=== PATIENT | male | born 1965 | race Two or more races ===

== ENCOUNTER 2017-04-20 14:51 | Emergency (ER) | payer OTHER ==
[~2017-04-20] VITALS: Ht 180.3 cm; Wt 83.5 kg
--- NOTE | 2017-04-20 15:48 | NUR ---
Patient discharged to home in stable conditon. Written and verbal after care instructions given. Patient verbalizes understanding of instructions.PT WALKS IN STEADY GAIT, PT WITH
== END 2017-04-20 15:50 | disposition home or self-care (01) ==
LOC: ER 14:52
DX: H66.92 Otitis media, unspecified, left ear (principal); J11.1 Influenza due to unidentified influenza virus with other respiratory manifestations; K21.9 Gastro-esophageal reflux disease without esophagitis; F17.200 Nicotine dependence, unspecified, uncomplicated
CPT/HCPCS: A4663

== ENCOUNTER 2017-05-28 08:10 | Emergency (ER) | payer OTHER ==
[~2017-05-28] VITALS: Ht 180.3 cm; Wt 83.9 kg
--- NOTE | 2017-05-28 08:33 | NUR ---
NAIN COPELAND at the bedside for MSE.
--- NOTE | 2017-05-28 08:43 | NUR ---
Patient discharged to home in stable conditon. Written and verbal after care instructions given. Patient verbalizes understanding of instructions.
[2017-05-28 08:47] VITALS: BP 155/91
== END 2017-05-28 08:47 | disposition home or self-care (01) ==
LOC: ER 08:10
DX: J40 Bronchitis, not specified as acute or chronic (principal); K21.9 Gastro-esophageal reflux disease without esophagitis; F17.200 Nicotine dependence, unspecified, uncomplicated
CPT/HCPCS: A4663

== ENCOUNTER 2017-10-04 08:24 | Emergency (ER) | payer OTHER ==
[~2017-10-04] VITALS: Ht 180.3 cm; Wt 86.2 kg
[2017-10-04] MEDS ORDERED: OMEPRAZOLE DR 20 MG CAPSULE PO (08:33)
--- NOTE | 2017-10-04 08:49 | NUR ---
Patient discharged to home in stable conditon. Written and verbal after care instructions given. Patient verbalizes understanding of instructions.
== END 2017-10-04 08:50 | disposition home or self-care (01) ==
LOC: ER 08:24
DX: J06.9 Acute upper respiratory infection, unspecified (principal); K21.9 Gastro-esophageal reflux disease without esophagitis; F17.210 Nicotine dependence, cigarettes, uncomplicated; Z79.899 Other long term (current) drug therapy
CPT/HCPCS: 99283; A4663

== ENCOUNTER 2018-01-12 15:29 | Emergency (ER) | payer OTHER ==
[~2018-01-12] VITALS: Ht 180.3 cm; Wt 86.2 kg
--- NOTE | 2018-01-12 16:05 | NUR ---
PATIENT WAS MSE BY DR BRYANT IN ROOM 01B.
--- NOTE | 2018-01-12 16:23 | NUR ---
Patient discharged to home in stable conditon. Written and verbal after care instructions given. Patient verbalizes understanding of instructions.
[2018-01-12 16:27] VITALS: BP 143/86
== END 2018-01-12 16:29 | disposition home or self-care (01) ==
LOC: ER 15:31
DX: J06.9 Acute upper respiratory infection, unspecified (principal); K21.9 Gastro-esophageal reflux disease without esophagitis; F17.200 Nicotine dependence, unspecified, uncomplicated
CPT/HCPCS: A4663

== ENCOUNTER → 2018-01-12 | Emergency (ER) | payer OTHER ==
[~2018-01-12] MED LIST: OMEPRAZOLE DR 20 MG CAPSULE PO
--- NOTE | 2018-01-12 14:43 | NUR ---
PT NOT IN WAITING RM - CHECKED X 2.
--- NOTE | 2018-01-12 15:06 | NUR ---
NOT IN WAITING RM.
== END | disposition left against medical advice (07) ==
LOC: ER 14:15
DX: Z53.21 Procedure and treatment not carried out due to patient leaving prior to being seen by health care provider (principal)

== ENCOUNTER 2018-04-13 05:25 | Emergency (ER) | payer OTHER ==
[~2018-04-13] VITALS: Ht 180.3 cm; Wt 88.5 kg
--- NOTE | 2018-04-13 05:30 | NUR ---
Pt. ambulated into ED w/ c/o upper epigastric/lower esophageal pain/heartburn X 3 days, pt. states "I ran out of my omeprazole", denies F/C/N/V/D/MORALES/CP/SOB, A/Ox4, accompanied by ,
[2018-04-13] MEDS ORDERED: ALPR0.5T8 PO (05:40)
[2018-04-13] MEDS ORDERED: DICYCLOMINE HCL LIQ 10 MG/5 ML UDC PO ONE (06:00)
[2018-04-13] MEDS ORDERED: MAG HYDROX/AL HYDROX/SIMETH 30 ML LIQUID UDC PO ONE ×2 (06:00→06:45)
[2018-04-13] MEDS ORDERED: LIDOCAINE VISCUS 2% 15 ML UDC MM ONE (06:00)
[2018-04-13] MEDS ORDERED: LIDOCAINE HCL 2% 20 ML VIAL ONE (06:02)
[2018-04-13] MEDS ORDERED: DICYCLOMINE HCL LIQ 10 MG/5 ML UDC ONE (06:02)
[2018-04-13] MEDS ORDERED: MAGNESIUM HYDROXIDE 30 ML LIQUID UDC ONE ×2 (06:02→06:36)
[2018-04-13] MEDS ORDERED: LIDOCAINE VISCUS 2% 15 ML UDC ONE (06:04)
--- NOTE | 2018-04-13 06:37 | NUR ---
Patient discharged to home in stable conditon. Written and verbal after care instructions given. Patient verbalizes understanding of instructions. Pt. d/c w/ prescription per MD order, d/c papers signed, ID band removed, all belongings w/ pt., left w/ female tug captain in private vehicle, left w/ steady gait in private vehicle, no acute distress,
== END 2018-04-13 06:39 | disposition home or self-care (01) ==
LOC: ER 05:28
DX: R12 Heartburn (principal); Z71.6 Tobacco abuse counseling; K21.9 Gastro-esophageal reflux disease without esophagitis; F17.290 Nicotine dependence, other tobacco product, uncomplicated; Z79.899 Other long term (current) drug therapy
CPT/HCPCS: A4663; J3490

== ENCOUNTER 2018-11-29 07:44 | Emergency (ER) | payer OTHER ==
[~2018-11-29] VITALS: Ht 180.3 cm; Wt 90.7 kg
[~2018-11-29 07:44] MED LIST changes: +ALPR0.5T8 PO
--- NOTE | 2018-11-29 08:51 | NUR ---
PATIENT WAS SEEN BY . DC, RX AND FOLLOW UP INSTRUCTIONS GIVEN AND EXPLAINED TO PATIENT WHO STATES HE UNDERSTANDS ALL INSTRUCTIONS.
== END 2018-11-29 08:55 | disposition home or self-care (01) ==
LOC: ER 07:44
DX: R21 Rash and other nonspecific skin eruption (principal); L29.9 Pruritus, unspecified; K21.9 Gastro-esophageal reflux disease without esophagitis; F41.9 Anxiety disorder, unspecified; F17.200 Nicotine dependence, unspecified, uncomplicated; Z79.899 Other long term (current) drug therapy
CPT/HCPCS: A4663

== ENCOUNTER 2019-05-22 11:54 | Emergency (ER) | payer OTHER ==
[~2019-05-22] VITALS: Ht 167.6 cm; Wt 90.7 kg
--- NOTE | 2019-05-22 12:06 | NUR ---
ERMD at bedside for MSE
--- NOTE | 2019-05-22 12:48 | NUR ---
Patient in bed sleeping, snoring. NAD, no signs of pain.
[2019-05-22] MEDS ORDERED: ONDANSETRON 4 MG/2 ML VIAL IV ONE ×2 (13:00→16:45)
[2019-05-22] MEDS ORDERED: MORPHINE SULFATE 4 MG/1 ML DISP.SYRIN IV ONE (13:00)
[2019-05-22] MEDS ORDERED: ONDANSETRON 4 MG/2 ML VIAL ONE ×2 (13:04→16:50)
[2019-05-22] MEDS ORDERED: MORPHINE SULFATE 4 MG/1 ML DISP.SYRIN ONE (13:04)
--- NOTE | 2019-05-22 13:37 | NUR ---
Patient back in room from CT
--- NOTE | 2019-05-22 14:30 | NUR ---
Patient states that he does not want to be admitted over night and wants to go home. KAMILA made aware.
--- NOTE | 2019-05-22 15:56 | NUR ---
JORDOND on the line with Dr. Petersen regarding his case.
[2019-05-22] MEDS ORDERED: HYDROMORPHONE 1 MG/1 ML DISP.SYRIN IV ONE (16:45)
[2019-05-22] MEDS ORDERED: HYDROMORPHONE 1 MG/1 ML DISP.SYRIN ONE (16:49)
[2019-05-22] MEDS ORDERED: NEOMY/BACITRA/POLYMYXIN B OINT UD PACKET TP ONE ×2 (17:00→18:47)
--- NOTE | 2019-05-22 17:09 | NUR ---
Patient discharged to home in stable conditon. Written and verbal after care instructions given. Patient verbalizes understanding of instructions. Instructed patient that he should not drive d/t medications administered. at bedside stated she will drive him home.
[2019-05-22 17:11] VITALS: BP 145/82
== END 2019-05-22 17:12 | disposition home or self-care (01) ==
LOC: ER 11:54
DX: S22.32XA Fracture of one rib, left side, initial encounter for closed fracture (principal); S51.012A Laceration without foreign body of left elbow, initial encounter; K21.9 Gastro-esophageal reflux disease without esophagitis; F17.200 Nicotine dependence, unspecified, uncomplicated; Z79.1 Long term (current) use of non-steroidal anti-inflammatories (NSAID); Z79.899 Other long term (current) drug therapy; W01.0XXA Fall on same level from slipping, tripping and stumbling without subsequent striking against object, initial encounter; Y93.89 Activity, other specified; Y92.89 Other specified places as the place of occurrence of the external cause; Y99.8 Other external cause status
CPT/HCPCS: 71101; 71250; 93005; 96374; 96375; 96376; 99284; J1170; J2270; J2405 ×2; A4663

== ENCOUNTER 2019-05-26 21:29 | Emergency (ER) | payer OTHER ==
[~2019-05-26] VITALS: Ht 170.2 cm; Wt 95.3 kg
--- NOTE | 2019-05-26 22:00 | NUR ---
Patient was called to be placed on bed. Patient was not present.
--- NOTE | 2019-05-26 22:30 | NUR ---
Patient was called to be placed in bed. Patient was not present.
--- NOTE | 2019-05-26 23:20 | NUR ---
Patient left without being seen by ERMD.
== END 2019-05-26 23:21 | disposition left against medical advice (07) ==
LOC: ER 21:31
DX: R07.89 Other chest pain (principal); Z53.21 Procedure and treatment not carried out due to patient leaving prior to being seen by health care provider
CPT/HCPCS: 93005

== ENCOUNTER 2019-05-27 11:15 | Emergency (ER) | payer OTHER ==
[~2019-05-27] VITALS: Ht 167.6 cm; Wt 95.3 kg
[~2019-05-27 11:15] MED LIST changes: -ALPR0.5T8 PO; +IBUP-1957 PO
--- NOTE | 2019-05-27 11:35 | NUR ---
12 LEAD EKG DONE UPON ARRIVAL. PLACED ON A ENGINEER SYSTEMS. PATIENT IS AWAKE AND ALERT, STATES HE HAS A RIB FRACTURE
--- NOTE | 2019-05-27 13:10 | NUR ---
NAIN COPELAND AT BEDSIDE. TRANSLATION FROM [facility] PROVIDED PER PT REQUEST.
[2019-05-27] MEDS ORDERED: SWABABLE VALVE TRANSFER SET EA MC ONE (13:23)
[2019-05-27 13:24] LABS: BASOPHILS % (AUTO) 0.5 % (0.0-2.0); EOSINOPHILS # (AUTO) 0.2 K/uL (0.0-0.7); HEMATOCRIT 41.4 % (36.7-47.1); HEMOGLOBIN 13.9 g/dL (12.5-16.3); LYMPHOCYTES # (AUTO) 1.9 K/uL (20.0-40.0); LYMPHOCYTES % (AUTO) 22.2 % (20.5-51.5); MEAN CORPUSCULAR HEMOGLOBIN 28.2 uug (23.8-33.4); MEAN CORPUSCULAR HGB CONC 34 g/dL (32.5-36.3); MONOCYTES # (AUTO) 0.7 K/uL (2.0-10.0); MONOCYTES % (AUTO) 8.3 % (0.0-11.0); NEUTROPHILS # (AUTO) 5.7 K/uL (1.8-8.9); PLATELET COUNT (AUTO) 338 K/uL (152-348); RED BLOOD CELL COUNT(AUTO) 4.93 MIL/uL (4.06-5.63); WHITE BLOOD COUNT (AUTO) 8.4 K/uL (3.6-10.2)
[2019-05-27] MEDS ORDERED: IV NORMAL SALINE 250 ML IV ONE (13:24)
[2019-05-27] MEDS ORDERED: IOHEXOL 350 100 ML INFUS..BTL ONE (13:24)
[2019-05-27 13:31] LABS: CREATININE 0.9 mg/dL (0.6-1.3); POTASSIUM 3.5 mmol/L (3.5-5.1)
--- NOTE | 2019-05-27 15:01 | NUR ---
PATIENT IS SITTING UP, IN NO DISTRESS. AWAITING TEST RESULTS
--- NOTE | 2019-05-27 15:35 | NUR ---
IV removed. Catheter intact and site benign. Pressure and 4x4 gauze applied to site. No bleeding noted.
--- NOTE | 2019-05-27 15:35 | NUR ---
DC AND F/U INSTRUCTIONS GIVEN AND EXPLAINED TO PATIENT AND WHO STATE THEY UNDERSTAND ALL INSTRUCTIONS
[2019-05-30] MEDS ORDERED: CEPH-570 PO (02:03)
== END 2019-05-27 15:36 | disposition home or self-care (01) ==
LOC: ER 11:15
DX: S22.42XA Multiple fractures of ribs, left side, initial encounter for closed fracture (principal); S51.012A Laceration without foreign body of left elbow, initial encounter; S70.12XA Contusion of left thigh, initial encounter; F17.200 Nicotine dependence, unspecified, uncomplicated; F41.9 Anxiety disorder, unspecified; J90 Pleural effusion, not elsewhere classified; Z79.899 Other long term (current) drug therapy; X58.XXXA Exposure to other specified factors, initial encounter; Y93.89 Activity, other specified; Y92.89 Other specified places as the place of occurrence of the external cause; Y99.8 Other external cause status
CPT/HCPCS: 36415; 71045; 71275; 73551; 80048; 84484; 85025; 85730; 93005; 99285; Q9967; 70030-TC; A4663; J7050

== ENCOUNTER 2019-05-30 01:46 | Emergency (ER) | payer OTHER ==
[~2019-05-30] VITALS: Ht 167.6 cm; Wt 95.3 kg
--- NOTE | 2019-05-30 02:12 | NUR ---
Dr. Taylor at bedside for MSE.
--- NOTE | 2019-05-30 03:06 | NUR ---
Patient discharged to home in stable conditon. Written and verbal after care instructions given. Patient verbalizes understanding of instructions. Patient ambulating with steady gait
[2019-05-30 03:07] VITALS: BP 156/97
== END 2019-05-30 03:05 | disposition home or self-care (01) ==
LOC: ER 01:54
DX: S70.12XA Contusion of left thigh, initial encounter (principal); K21.9 Gastro-esophageal reflux disease without esophagitis; F41.9 Anxiety disorder, unspecified; F17.200 Nicotine dependence, unspecified, uncomplicated; Z79.1 Long term (current) use of non-steroidal anti-inflammatories (NSAID); Z79.899 Other long term (current) drug therapy; V23.4XXA Motorcycle driver injured in collision with car, pick-up truck or van in traffic accident, initial encounter; Y93.89 Activity, other specified; Y92.410 Unspecified street and highway as the place of occurrence of the external cause; Y99.8 Other external cause status
CPT/HCPCS: A4663

== ENCOUNTER 2020-01-30 20:27 | Emergency (ER) | payer OTHER ==
[~2020-01-30] VITALS: Ht 167.6 cm; Wt 99.8 kg
[~2020-01-30 20:27] MED LIST changes: +CEPH-570 PO
--- NOTE | 2020-01-30 21:05 | NUR ---
Dr. Louis at bedside for MSE.
--- NOTE | 2020-01-30 21:25 | NUR ---
Patient provided urine sample, sent to lab.
[2020-01-30 21:37] LABS: ABG BASE EXCESS 0.9 mmol/L; ABG HCO3 24.8 mmol/L; ABG PCO2 37.3 mmHg (35.0-45.0); ABG SITE RIGHT RADIAL; ABG TOTAL HEMOGLOBIN 15.4 G/dL (13.5-18.0); COHb 4.2 % (0.5-1.5); MetHb 0.2 % (0.0-1.5); O2Hb 92.7 % (94.0-97.0); VENT MODE room air
--- NOTE | 2020-01-30 21:40 | NUR ---
Xray at bedside.
[2020-01-30 21:57] LABS: *BILIRUBIN,URIN NEGATIVE (NEGATIVE); *CLARITY,URINE CLEAR (CLEAR); *COLOR,URINE YELLOW (YELLOW); *KETONES,URINE NEGATIVE (NEGATIVE); *UROBILINOGEN,URINE 0.2 E.U./dl (NORMAL); LEUKOCYTE ESTERASE ,URINE NEGATIVE (NEGATIVE); NITRITE, URINE NEGATIVE (NEGATIVE); UGLUCOSE NEGATIVE (NEGATIVE)
[2020-01-30 22:04] LABS: BASOPHILS # (AUTO) 0.1 K/uL (0.0-8.0); BASOPHILS % (AUTO) 0.6 % (0.0-2.0); EOSINOPHILS # (AUTO) 0.1 K/uL (0.0-0.7); HEMATOCRIT 44.8 % (36.7-47.1); HEMOGLOBIN 14.9 g/dL (12.5-16.3); LYMPHOCYTES # (AUTO) 2.2 K/uL (20.0-40.0); LYMPHOCYTES % (AUTO) 23.1 % (20.5-51.5); MEAN CORPUSCULAR HEMOGLOBIN 28.4 uug (23.8-33.4); MEAN CORPUSCULAR HGB CONC 33 g/dL (32.5-36.3); MEAN CORPUSCULAR VOLUME 85.5 fL (73.0-96.2); MONOCYTES # (AUTO) 0.8 K/uL (2.0-10.0); NEUTROPHILS # (AUTO) 6.4 K/uL (1.8-8.9); NEUTROPHILS % (AUTO) 67.3 % (38.5-71.5); PLATELET COUNT (AUTO) 339 K/uL (152-348); RED BLOOD CELL COUNT(AUTO) 5.25 MIL/uL (4.06-5.63); WHITE BLOOD COUNT (AUTO) 9.6 K/uL (3.6-10.2)
[2020-01-30 22:06] LABS: CREATININE 1.2 mg/dL (0.6-1.3)
[2020-01-30 22:08] LABS: *BLOOD, URINE TRACE INTACT (NEGATIVE)
[2020-01-30 22:25] LABS: BILIRUBIN,TOTAL 0.2 mg/dL (0.2-1.0); TOTAL PROTEIN, SERUM 6.9 g/dL (6.4-8.2)
[2020-01-30 22:32] LABS: WBC,URINE 0-3 /HPF (0-3)
[2020-01-30] MEDS ORDERED: IV NS 1000 ML 1,000 ML IV ONE (23:00)
--- NOTE | 2020-01-30 23:19 | NUR ---
Called [facility] to page Dr. Ari Castro.
[2020-01-30] MEDS ORDERED: ASPIRIN 325 MG TABLET PO ONE (23:30)
--- NOTE | 2020-01-31 00:08 | NUR ---
Called [facility] to page Dr. George Verma.
--- NOTE | 2020-01-31 00:29 | NUR ---
MD used home extension agent phone to explain risks for going AMA with patient, and patient does not wish to proceed with medical care recommended by Dr. Louis. Patient given information related to possible complications, up to and including , which could occur as a result of leaving the hospital at this time. Patient verbalizes understanding of risks involved due to leaving against medical advice. Patient has signed AMA form. Patient out of ER with steady gait, no acute signs of distress, VSS, all belongings taken, IV site discontinued, provided with copies of lab and diagnostic procedures.
[2020-01-31 00:32] VITALS: BP 143/69
== END 2020-01-31 00:32 | disposition left against medical advice (07) ==
LOC: ER 20:29
DX: R07.9 Chest pain, unspecified (principal); E86.0 Dehydration; R05 Cough; Z20.828 Contact with and (suspected) exposure to other viral communicable diseases; K21.9 Gastro-esophageal reflux disease without esophagitis; F17.210 Nicotine dependence, cigarettes, uncomplicated; Z79.899 Other long term (current) drug therapy; R94.31 Abnormal electrocardiogram [ECG] [EKG]; Z87.09 Personal history of other diseases of the respiratory system
CPT/HCPCS: 0099U; 36600; 71045; 80053; 81001; 82550; 82728; 83605; 83615; 83880; 84484; 85025; 85379; 85385; 85730; 86140; 87040 ×2; 87086; 87400; 87426; 93005; 96360; 99285; 70030-TC; A4663; J7030

== ENCOUNTER 2021-07-27 00:13 | Emergency (ER) | payer SELFPAY ==
[~2021-07-27] VITALS: Ht 180.3 cm; Wt 90.7 kg
[~2021-07-27 00:13] MED LIST changes: -CEPH-570 PO
--- NOTE | 2021-07-27 00:42 | NUR ---
Dr Goodrich at bedside, MSE in progress.
[2021-07-27] MEDS ORDERED: ASPI81TA31 PO (00:55)
[2021-07-27] MEDS ORDERED: OMEP40CA21 PO (00:55)
[2021-07-27] MEDS ORDERED: SULFAMETH/TRIMETH 800/160 MG TABLET PO ONE (01:15)
[2021-07-27] MEDS ORDERED: CLONIDINE HCL 0.1 MG TABLET PO ONE (01:15)
[2021-07-27] MEDS ORDERED: HYDROCODONE/APAP 5-325MG TABLET PO ONE (01:15)
[2021-07-27] MEDS ORDERED: CLONIDINE HCL 0.1 MG TABLET ONE (01:16)
[2021-07-27] MEDS ORDERED: HYDROCODONE/APAP 5-325MG TABLET ONE (01:21)
[2021-07-27] MEDS ORDERED: SULFAMETH/TRIMETH 800/160 MG TABLET ONE (01:21)
[2021-07-27 01:24] LABS: HEMATOCRIT 39.6 % (36.7-47.1); MEAN CORPUSCULAR HEMOGLOBIN 28.9 uug (23.8-33.4); MEAN CORPUSCULAR VOLUME 82.9 fL (73.0-96.2); PLATELET COUNT (AUTO) 331 K/uL (152-348)
[2021-07-27 01:34] LABS: CREATININE 1.1 mg/dL (0.6-1.3); POTASSIUM 3.2 mmol/L (3.5-5.1)
[2021-07-27 01:40] LABS: BILIRUBIN,TOTAL 0.5 mg/dL (0.2-1.0); TOTAL PROTEIN, SERUM 7.1 g/dL (6.4-8.2)
[2021-07-27] MEDS ORDERED: FURO-152 PO (02:52)
[2021-07-27] MEDS ORDERED: POTA-194 PO (02:52)
[2021-07-27] MEDS ORDERED: SULF1TAB48 PO (02:52)
[2021-07-27] MEDS ORDERED: POTASSIUM CHLORIDE 20 MEQ TAB.PRT.SR ONE (03:06)
[2021-07-27 03:13] VITALS: BP 145/93
--- NOTE | 2021-07-27 03:13 | NUR ---
Patient discharged to home in stable condition. Written and verbal after care instructions given. Patient verbalizes understanding of instructions. Stressed follow up or return to ER for worsening s/s. pt ambulated with steady gait. denies pain. no SOB. no chest pain. AO x4
[2021-07-27] MEDS ORDERED: POTASSIUM CHLORIDE 20 MEQ TAB.PRT.SR PO ONE (03:15)
== END 2021-07-27 03:14 | disposition home or self-care (01) ==
LOC: ER 00:15
DX: L97.929 Non-pressure chronic ulcer of unspecified part of left lower leg with unspecified severity (principal); I10 Essential (primary) hypertension; F17.210 Nicotine dependence, cigarettes, uncomplicated; Z79.82 Long term (current) use of aspirin; K21.9 Gastro-esophageal reflux disease without esophagitis; Z79.899 Other long term (current) drug therapy
CPT/HCPCS: 36415; 85025; 85610